=== PATIENT | female | born 1980 | race African-American/Black ===

== ENCOUNTER 2021-01-22 05:30 | Day surgery (SDC) | payer OTHER ==
[2021-01-21 11:38] VITALS: BMI 318.9
[2021-01-22] MEDS ORDERED: KETOROLAC TROMETHAMINE 30 MG/1 ML VIAL IVPUSH ONE ×2 (11:58→12:19)
[2021-01-22] MEDS ORDERED: HYDROmorphone *PCA* 10MG/50ML DISP.SYRIN ONE (13:12)
[2021-01-22] MEDS ORDERED: HYDROmorphone *PCA* 10MG/50ML DISP.SYRIN PCA SCH (14:15)
[2021-01-22] MEDS ORDERED: HYDROmorphone HCl 2 MG/ML VIAL IVPUSH PRN (14:20)
[2021-01-22] MEDS ORDERED: MIDAZOLAM HCL 2 MG/2 ML SINGLE DOSE VIAL IVPUSH ONE (14:30)
[2021-01-22] MEDS ORDERED: SODIUM CHLORIDE 1,000 ML IV SCH (20:00)
[2021-01-23] MEDS: SODIUM CHLORIDE 1,000 ML IV SCH ×2 (01:01→13:56)
[2021-01-23] MEDS ORDERED: PCA PUMP NR ONE ×2 (02:42→11:22)
[2021-01-23] MEDS: ONDANSETRON 4 MG/2 ML VIAL IVPUSH PRN ×2 (07:25→13:57)
[2021-01-23 12:52] LABS: BASO % 0.5 % (0-2.0); EOS % 0.5 % (0-4.5); HEMATOCRIT 35.3 % (32.4-45.2); HEMOGLOBIN 11.6 GM/dL (10.7-15.3); LYMPH % 17.3 % (8-40); MCH 28.8 pg (25.7-33.7); MCHC 32.9 g/dl (32.0-36.0); MEAN CELL VOLUME 87.3 fl (80-96); MEAN PLT VOLUME 7.2 fl (7.5-11.1); MONO % 9.1 % (3.8-10.2); NEUT % 72.6 % (42.8-82.8); PLATELET COUNT 293 K/MM3 (134-434); RBC 4.04 M/mm3 (3.60-5.2); RDW 14.6 % (11.6-15.6); WHITE BLOOD COUNT 6.2 K/mm3 (4.0-10.0)
[2021-01-23 13:16] LABS: CALCIUM 8.3 mg/dL (8.5-10.1)
[2021-01-23 13:17] LABS: ALBUMIN 3.4 g/dl (3.4-5.0); BLOOD UREA NITROGEN 9.1 mg/dL (7-18)
[2021-01-23 13:20] LABS: CREATININE 0.8 mg/dL (0.55-1.3)
[2021-01-23 13:21] LABS: BILIRUBIN,TOTAL 0.3 mg/dL (0.2-1); TOT PROT 7.5 g/dl (6.4-8.2)
[2021-01-23] MEDS ORDERED: ACETAMINOPHEN 500 MG TABLET (FP) PO PRN ×2 (15:25→15:32)
[2021-01-23] MEDS ORDERED: oxyCODONE HCL 5 MG TABLET PO PRN (15:33)
[2021-01-23 15:52] VITALS: BP 142/73; PULSE 95; TEMP 98.2
== END 2021-01-23 18:00 | disposition home or self-care (01) ==
LOC: JASUSAT 05:30 → J8W 15:17 → JASUSAT 01-23 18:00
PROVIDERS: ATTEND Family Medicine
PROC: 04LE3DT Occlusion of Right Uterine Artery with Intraluminal Device, Percutaneous Approach (ICD-10-PCS; 2021-01-22)
PROC: 04LF3DU Occlusion of Left Uterine Artery with Intraluminal Device, Percutaneous Approach (ICD-10-PCS; principal; 2021-01-22 10:00)
DX: D25.9 Leiomyoma of uterus, unspecified (principal); N93.8 Other specified abnormal uterine and vaginal bleeding
CPT/HCPCS: 36415; 37243; 80053; 84703; 85025; 94760